=== PATIENT | female | born 1945 | race Hispanic/Latino ===

== ENCOUNTER 2018-03-24 04:55 | Emergency (ER) | payer OTHER ==
[2018-03-24 05:25] LABS: BASOPHILS % (AUTO) 0.4 % (0.0-5.0); EOSINOPHILS % (AUTO) 0.5 % (0.0-8.0); HEMATOCRIT 39.7 % (36-48); LYMPHOCYTES % (AUTO) 14.9 % (21.0-51.0); MEAN CORPUSCULAR HEMOGLOBIN 28.6 pg (27.0-33.0); MEAN CORPUSCULAR HGB CONC 33.4 g/dL (32.0-36.0); MEAN CORPUSCULAR VOLUME 85.6 fL (79-99); NEUTROPHILS % (AUTO) 78.2 % (40.0-77.0); PLATELET COUNT (AUTO) 156 K/uL (130-400); RED BLOOD CELL COUNT(AUTO) 4.64 MIL/uL (4.00-5.50); RED CELL DISTRIBUTION WIDTH 15.5 % (11.0-15.5); WHITE BLOOD COUNT (AUTO) 10.5 K/uL (4.8-10.8)
[2018-03-24 05:35] LABS: APPEARANCE,URINE Clear (CLEAR); BILIRUBIN,URINE Negative (NEGATIVE); COLOR,URINE Yellow (YELLOW); GLUCOSE, URINE (UA) Negative (NEGATIVE); KETONES,URINE Negative (NEGATIVE); LEUKOCYTE ESTERASE ,URINE Trace (NEGATIVE); NITRATE,URINE Negative (NEGATIVE); OCCULT BLOOD,URINE Negative (NEGATIVE); PH,URINE 7.5 (5.0-8.0); PROTEIN,URINE Negative (NEGATIVE); UROBILINOGEN,URINE 0.2 mg/dL (0.2-1.0)
[2018-03-24 05:36] LABS: CREATININE 0.8 mg/dL (0.5-1.5); POTASSIUM 3.3 mmol/L (3.5-5.1)
[2018-03-24 05:38] LABS: INR 0.94 (0.85-1.15); PARTIAL THROMBOPLASTIN TIME 24.6 SEC (26.3-35.5); PROTHROMBIN TIME 9.9 SEC (9.6-11.6)
[2018-03-24] MEDS ORDERED: POTASSIUM BICARB/CIT AC 25 MEQ TABLET.EFF ONE (05:43)
[2018-03-24] MEDS ORDERED: SODIUM CHLORIDE 0.9% 50 ML IV ONE (05:44)
[2018-03-24] MEDS ORDERED: CEFTRIAXONE SODIUM 1 GM ONE (05:44)
[2018-03-24 05:50] LABS: ALBUMIN 3.8 g/dL (3.5-5.0); BILIRUBIN,TOTAL 0.2 mg/dL (0.2-1.0); CREATINE KINASE MB 0.6 ng/mL (0.5-3.6); TOTAL PROTEIN, SERUM 7.8 g/dL (6.0-8.3)
[2018-03-24] MEDS ORDERED: KETOROLAC TROMETHAMINE 15MG/ML ONE (05:56)
[2018-03-24 05:57] LABS: BACTERIA,URINE Few /HPF (None Seen); MUCUS,URINE Few LPF (None Seen); RBC,URINE 0-1 /HPF (0-1); SQUAMOUS EPITHELIAL CELL,UR Few /HPF (0-2); WBC,URINE 0-1 /HPF (0-1)
[2018-03-24] MEDS ORDERED: TRAMADOL HCL 50 MG TABLET ONE (06:53)
[2018-03-24] MEDS ORDERED: ONDANSETRON HCL 4 MG/2 ML VIAL ONE (06:58)
== END 2018-03-24 08:34 | disposition home or self-care (01) ==
LOC: EDH 04:55
DX: N39.0 Urinary tract infection, site not specified (principal); I10 Essential (primary) hypertension; Z79.899 Other long term (current) drug therapy
CPT/HCPCS: 36415; 71045; 80053; 81001; 82550; 82553; 83690; 84484; 85025; 85610; 85730; 87088; 87186; 93005; 96374; 96375; 99285; J0696; J1885; J2405

== ENCOUNTER 2018-09-13 23:31 | Emergency (ER) | payer OTHER ==
[2018-09-14] MEDS ORDERED: HYDROCODONE/ACETAMINOPHEN 5/325 MG TAB ONE (00:42)
== END 2018-09-14 01:28 | disposition home or self-care (01) ==
LOC: EDH 23:31
DX: M25.552 Pain in left hip (principal); I10 Essential (primary) hypertension; M81.0 Age-related osteoporosis without current pathological fracture; Z79.899 Other long term (current) drug therapy; Z96.642 Presence of left artificial hip joint
CPT/HCPCS: 73502

== ENCOUNTER → 2019-11-08 | Outpatient (CLI) | payer OTHER | END | disposition home or self-care (01) | LOC: OIH 08:40 | PROVIDERS: ATTEND Family Medicine | DX: K40.90 Unilateral inguinal hernia, without obstruction or gangrene, not specified as recurrent (principal); I70.0 Atherosclerosis of aorta | CPT/HCPCS: 72192 ==

== ENCOUNTER 2025-01-22 00:24 | Observation (INO) | payer OTHER ==
[~2025-01-22] VITALS: Ht 152.4 cm; Wt 49.9 kg
[2025-01-22 00:58] LABS: BASOPHILS # (AUTO) 0.04 K/uL (0.00-0.20); BASOPHILS % (AUTO) 0.7 % (0.0-5.0); EOSINOPHILS # (AUTO) 0.22 K/uL (0.00-0.70); EOSINOPHILS % (AUTO) 3.7 % (0.0-8.0); HEMATOCRIT 35.1 % (36-48); IMMATURE GRANULOCYTE ABSOLUTE 0.01 K/uL (0-1); LYMPHOCYTES # (AUTO) 2.1 K/uL (1.0-4.8); LYMPHOCYTES % (AUTO) 36.1 % (21.0-51.0); MEAN CORPUSCULAR HEMOGLOBIN 28.8 pg (27.0-33.0); MEAN CORPUSCULAR HGB CONC 32.2 g/dL (32.0-36.0); MEAN CORPUSCULAR VOLUME 89.5 fL (79-99); MONOCYTES # (AUTO) 0.5 K/uL (0.1-1.0); MONOCYTES % (AUTO) 9.2 % (3.0-13.0); NEUTROPHILS % (AUTO) 50.1 % (40.0-77.0); PLATELET COUNT (AUTO) 117 K/uL (130-400); RED BLOOD CELL COUNT(AUTO) 3.92 MIL/uL (4.00-5.50); RED CELL DISTRIBUTION WIDTH 14.1 % (11.0-15.5); WHITE BLOOD COUNT (AUTO) 5.9 K/uL (4.8-10.8)
[2025-01-22 01:07] LABS: CREATININE 0.9 mg/dL (0.5-1.0); POTASSIUM 3.8 mmol/L (3.5-5.1)
[2025-01-22 01:40] LABS: BASOPHILS % (MANUAL) 1 % (0-2); EOSINOPHILS % (MANUAL) 4 % (1-6); LYMPHOCYTES % (MANUAL) 34 % (22-44); MONOCYTES % (MANUAL) 7 % (2-9); SEGMENTED NEUTROPHILS % 54 % (40-70); TOTAL CELLS COUNTED 100
[2025-01-22 01:41] LABS: MAN.DIFF COMMENT-IMPRESSION MANUAL DIFFERENTIAL
[2025-01-22 01:46] LABS: ADD UA MICROSCOPIC YES; APPEARANCE,URINE CLEAR (CLEAR); BILIRUBIN,URINE NEGATIVE (NEGATIVE); COLOR,URINE LIGHT-YELLOW (YELLOW); GLUCOSE, URINE (UA) NEGATIVE (NEGATIVE); KETONES,URINE NEGATIVE (NEGATIVE); LEUKOCYTE ESTERASE ,URINE 75 Leu/uL (NEGATIVE); NITRATE,URINE NEGATIVE (NEGATIVE); OCCULT BLOOD,URINE NEGATIVE (NEGATIVE); PROTEIN,URINE NEGATIVE (NEGATIVE); UROBILINOGEN,URINE 0.2 mg/dL (0.2-1.0)
[2025-01-22 01:48] LABS: BACTERIA,URINE FEW /HPF (None Seen); MUCUS,URINE RARE LPF (None Seen); RBC,URINE 0-1 /HPF (0-1); SQUAMOUS EPITHELIAL CELL,UR RARE /HPF (0-2)
--- NOTE | 2025-01-22 02:13 | HMCIMG ---
CT HEAD/BRAIN W/O CONTRAST HISTORY: Persistent dizziness COMPARISON: None TECHNIQUE: Multiple sequential axial images of the head were obtained from the base of the skull through vertex. Patient was not given contrast through intravenous route. FINDINGS: The ventricles and extraventricular CSF spaces are dilated consistent with cerebral atrophy. Nonspecific white matter changes seen. There is no midline shift, mass effect or herniation. No acute intracranial bleed is seen. Visualized portion of the paranasal sinuses are grossly within normal limits. IMPRESSION: 1. No acute intracranial bleed is seen. 2. Atrophy with white matter changes. CT was performed with one or more following dose reduction techniques: automated exposure control, adjustment of the mA and kv according to patient's size, or use of a iterative reconstruction technique.
--- NOTE | 2025-01-22 03:44 | ERN ---
General Chief Complaint: Dizzy/Light Headed Stated Complaint: DIZZINESS Time Seen by MD: 00:35 Time Seen by Midlevel: 00:35 Source: patient History of Present Illness Initial Comments The patient is an 79-year-old female with a past medical history of osteoporosis and hyperlipidemia being brought in by EMS for evaluation of dizziness. According to EMS the patient was getting out of her car when she became dizzy. She was unable to walk in a straight line so they decided to bring her in for further evaluation. On arrival she does report feeling mild dizziness but denies any focal weakness, vision changes, headache, or any other symptoms at this time. Allergies: Coded Allergies: No Known Allergies (Unverified Allergy, Unknown, 01/22/25) Past Medical History Past Medical History: Hypertension Past Surgical History: None ROS Dictation CONSTITUTIONAL: Negative except for HPI HEAD/FACE: Negative except for HPI EENT: Negative except for HPI RESPIRATORY: Negative except for HPI GASTROINTESTINAL/ABDOMINAL: Negative except for HPI GENITOURINARY: Negative except for HPI MUSCULOSKELETAL: Negative except for HPI INTEGUMENTARY: Negative except for HPI NEUROLOGICAL/PSYCH: Negative except for HPI HEMATOLOGIC/LYMPHATIC: Negative except for HPI All Systems Negative, Except as noted above. 13 point review of systems assessed and all negative except for above. Physical Exam Physical Exam Dictation Vital Signs reviewed General Appearance: Alert, oriented x 3, no acute distress, well developed, nourished. Head and Face: non-traumatic. Eyes: PERRL, pink conjunctivas, eyelid no trauma, anterior chamber with arcus senilis. Ears: Pinnas intact and no signs of trauma or erythema ear canals clear and no discharge TM no erythema Nose: No discharge, no bleeding. Oropharynx: Mouth normal, tongue pink, pharynx clear,no erythema, tonsils no exudates, no abscesses noted, mucous membrane moist Neck: Supple, non-tender, no thyromegaly, no masses, no JVD, no bruits Breast:Deferred Chest:No tenderness, no crepitus, no paradoxical movement, no retractions Lungs:Clear, well-ventilated, symmetric, no rales, no wheezing, no rhonchi, no stridor, good breath sounds bilaterally Heart: Regular rate, regular rhythm, no murmur, no gallops Vascular: no peripheral edema, Abdomen: Soft, positive bowel sounds, nondistended, no guarding, nontender, no rebound, no masses no hepatomegaly, no splenomegaly, no Doyle's sign, no hernias. Rectal: Deferred Genital: Deferred Neurological: Normal speech, motor function intact, sensory function intact Musculoskeletal: Neck nontender, full range of motion, back nontender, full range of motion, Extremities: nontender, full range of motion Skin: Color pink, dry, no turgor, no rash, no lacerations, no abrasions, no contusions. Lymphatic: Deferred Results Laboratory and Microbiology Lab and Micro Result Laboratory Tests Test 01/22/25 00:50 01/22/25 01:13 White Blood Count 5.9 K/uL (4.8-10.8) Red Blood Count 3.92 MIL/uL (4.00-5.50) L Hemoglobin 11.3 g/dL (12.0-16.0) L Hematocrit 35.1 % (36-48) L Mean Corpuscular Volume 89.5 fL (79-99) Mean Corpuscular Hemoglobin 28.8 pg (27.0-33.0) Mean Corpuscular Hemoglobin Concent 32.2 g/dL (32.0-36.0) Red Cell Distribution Width 14.1 % (11.0-15.5) Platelet Count 117 K/uL (130-400) L Mean Platelet Volume 12.6 fL (7.5-10.5) H Immature Granulocyte % (Auto) 0.2 % (0-1) Neutrophils (%) (Auto) 50.1 % (40.0-77.0) Lymphocytes (%) (Auto) 36.1 % (21.0-51.0) Monocytes (%) (Auto) 9.2 % (3.0-13.0) Eosinophils (%) (Auto) 3.7 % (0.0-8.0) Basophils (%) (Auto) 0.7 % (0.0-5.0) Neutrophils # (Auto) 3.0 K/uL (1.8-7.7) Lymphocytes # (Auto) 2.1 K/uL (1.0-4.8) Monocytes # (Auto) 0.5 K/uL (0.1-1.0) Eosinophils # (Auto) 0.22 K/uL (0.00-0.70) Basophils # (Auto) 0.04 K/uL (0.00-0.20) Absolute Immature Granulocyte (auto 0.01 K/uL (0-1) Segmented Neutrophils % 54 % (40-70) Lymphocytes % (Manual) 34 % (22-44) Monocytes % (Manual) 7 % (2-9) Eosinophils % (Manual) 4 % (1-6) Basophils % (Manual) 1 % (0-2) Nucleated Red Blood Cells 0.0 % (0.0-0.19) Differential Comment MANUAL DIFFERENTIAL White Cell Morphology Comment Platelet Morphology Comment See comments Red Blood Cell Morphology HYPOCHROM CELLS 1+ Sodium Level 144 mmol/L (136-145) Potassium Level 3.8 mmol/L (3.5-5.1) Chloride Level 107 mmol/L (101-111) Carbon Dioxide Level 29 mmol/L (21-32) Blood Urea Nitrogen 14 mg/dL (7-18) Creatinine 0.9 mg/dL (0.5-1.0) Glomerular Filtration Rate Calc 64 mL/min (>90) Random Glucose 110 mg/dL (70-105) H Total Calcium 8.3 mg/dL (8.5-10.1) L Magnesium Level 2.00 mg/dL (1.80-2.40) Total Creatine Kinase 83 U/L (21-232) # Troponin I High Sensitivity 8 ng/L (4-50) Urine Color LIGHT-YELLOW (YELLOW) Urine Appearance CLEAR (CLEAR) Urine pH 6.0 (5.0-8.0) Urine Specific [place] 1.011 (1.001-1.031) Urine Protein NEGATIVE mg/dL (NEGATIVE) Urine Glucose (UA) NEGATIVE mg/dL (NEGATIVE) Urine Ketones NEGATIVE mg/dL (NEGATIVE) Urine Occult Blood NEGATIVE (NEGATIVE) Urine Nitrate NEGATIVE (NEGATIVE) Urine Bilirubin NEGATIVE mg/dL (NEGATIVE) Urine Urobilinogen 0.2 mg/dL (0.2-1.0) Urine Leukocyte Esterase 75 Leslie/uL (NEGATIVE) H Urine RBC 0-1 /HPF (0-1) Urine WBC 2-5 /HPF (0-1) H Urine Squamous Epithelial Cells RARE /HPF (0-2) Urine Bacteria FEW /HPF (None Seen) Labs Reviewed?: Yes MDM MDM: The patient is an 79-year-old female with a past medical history of osteoporosis and hyperlipidemia being brought in by EMS for evaluation of dizziness. According to EMS the patient was getting out of her car when she became dizzy. She was unable to walk in a straight line so they decided to bring her in for further evaluation. On arrival she does report feeling mild dizziness but denies any focal weakness, vision changes, headache, or any other symptoms at this time. Initial vital signs are remarkable for a temperature of 98.1. Heart rate is normal at 67 beats per minute. Blood pressure stable at 140 4/90. On physical examination the patient was in no acute distress. She has a subjective dizziness. Her neurological examination is unremarkable. She was no focal weakness. GCS of 15. Cardiac workup was initiated. CBC shows no leukocytosis. There is mild anemia with hemoglobin of 11.3. There is mild thrombocytopenia with a platelet count of 117. Chemistries are unremarkable. Urinalysis does not show any evidence of infection. Chest x-ray is normal. CT scan of the head does not show any acute intracranial bleed or any other acute abnormality. Patient was observed in the emergency department for over 2 hours. Upon re-examination we attempted to road test the patient but she was unable to ambulate secondary to dizziness. Her blood pressure has increased to 180 systolic. We will keep in the hospital for further observation and management. Patient was agreeable with this plan and all questions have answered. Case was discussed with benchmark service who agrees to admit. Differential diagnosis: Dehydration, electrolyte abnormality, intracranial bleed, intracranial mass Rationale: Tests considered and ordered secondary to shared decision making include: Previous outside records reviewed: Old ER visits. Risk of complication and/or morbidity or mortality of patient management: None Medications-Per medication reconciliation Need for hospitalization: Patient does meet criteria for hospitalization. Need for emergency major/minor surgery: No There are no social concerns with this patient. Prescription drug management Prescriptions will include symptomatic care Patient's prior external medical records from other ER visits were reviewed by me as indicated. Prior testing and results from previous visits were reviewed. Prior tests were taken into account with medical decision making and resource utilization, independent historian/historians were used to obtain complete medical history. I independently interpreted the test that were performed, results were reviewed by me and considered findings on radiology if ordered. Medical management and examination interpretation discussions were had by me with other qualified healthcare professionals as indicated for the patient's care. ED Course Orders Procedure Category Date Status Time 12 Lead Ekg Tracing- EKG 01/22/25 Logged Technical 00:43 Cbc With Differential LAB 01/22/25 Complete 00:43 Basic Metabolic Panel LAB 01/22/25 Complete 00:43 Creatine Kinase, Total LAB 01/22/25 Complete 00:43 Urinalysis Profile LAB 01/22/25 Complete 00:43 Troponin I High LAB 01/22/25 Complete Sensitivity 00:43 Magnesium LAB 01/22/25 Complete 00:43 Chest 1vw RAD 01/22/25 Taken 00:43 Ct Head/Brain W/O CT 01/22/25 Resulted Contrast 00:48 Manual Differential LAB 01/22/25 Complete 00:50 Culture Urine YEMI 01/22/25 In Process 01:46 Vital Signs Date Time Temp Pulse Resp B/P (MAP) Pulse Ox O2 Delivery O2 Flow Rate FiO2 01/22/25 00:30 98.1 67 16 144/90 95 Room Air 0 [facility] [address] [place] [id number] IMAGING REPORT Signed PATIENT: SON SCOTT MR#: [id number] : 1945 SEX: F AGE: 79 LOCATION: ED ORDER STATUS: REG REPORT#: [id number] SERVICE REASON: persistent dizziness ORDERING PHYSICIAN: TONIE CARTER PROCEDURE: HEAD WO - CT HEAD/BRAIN W/O CONTRAST CT HEAD/BRAIN W/O CONTRAST HISTORY: Persistent dizziness COMPARISON: None TECHNIQUE: Multiple sequential axial images of the head were obtained from the base of the skull through vertex. Patient was not given contrast through intravenous route. FINDINGS: The ventricles and extraventricular CSF spaces are dilated consistent with cerebral atrophy. Nonspecific white matter changes seen. There is no midline shift, mass effect or herniation. No acute intracranial bleed is seen. Visualized portion of the paranasal sinuses are grossly within normal limits. IMPRESSION: 1. No acute intracranial bleed is seen. 2. Atrophy with white matter changes. CT was performed with one or more following dose reduction techniques: automated exposure control, adjustment of the mA and kv according to patient's size, or use of a iterative reconstruction technique. DICTATED BY: SINDHU CLARK MD DATE: 01/22/25206 ELECTRONICALLY SIGNED BY: SINDHU CLARK MD DATE: 01/22/25212 DX & DISP Disposition: Inpatient Decision to Admit Date: Jan 22, 2025 Decision to Admit Time: 03:42 Departure Impression: Primary Impression: Dizziness Additional Impression: Hypertensive urgency Condition: Stable Referrals: ETHAN VAZQUEZ DO (PCP) I have reviewed the case, and I agree with, Diagnosis and Plan I performed the substantive portion of the visit. I have reviewed and personally made and approve the management plan that is documented in the note by myself or the CATRACHITO. I acknowledge for responsibility for the patient's management plan. TONIE CARTER Jan 22, 2025 03:44
[2025-01-22] MEDS ORDERED: LAbetaLOL 20MG SYG IV PRN (04:00)
[2025-01-22] MEDS ORDERED: acetaMINOPHEN 650 MG SUPPOSITORY RC PRN (04:00)
[2025-01-22] MEDS ORDERED: HYDROcodone/APAP 5/325 1 TAB TABLET PO PRN ×2 (04:00)
[2025-01-22] MEDS ORDERED: acetaMINOPHEN 325 MG TAB PO PRN (04:00)
[2025-01-22] MEDS ORDERED: ondanSETRON 4MG INJ IVP PRN (04:00)
[2025-01-22] MEDS ORDERED: ALBUTEROL 0.083% 2.5 MG/3 ML INH IH PRN (04:00)
[2025-01-22 06:38] VITALS: PULSE 57; RESP 16; O2SAT 99
--- NOTE | 2025-01-22 06:53 | EKG ---
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
[2025-01-22] MEDS: hydrALAZine 20MG/ML VIAL IV PRN (07:02)
--- NOTE | 2025-01-22 07:04 | NUR ---
REPORT RECEIVED FROM FAROOQ LUNDBERG
[2025-01-22] MEDS ORDERED: ROSU10TA72 PO (07:26)
[2025-01-22] MEDS ORDERED: ALEN70TA80 PO (07:26)
--- NOTE | 2025-01-22 07:27 | NUR ---
MEDICATION RECONCILIATION: COMPLETED
--- NOTE | 2025-01-22 07:29 | NUR ---
ASSESSMENT: PT FOUND AWAKE W/HOB SLIGTLY ELEVATED. NO ACUTE DISTRESS NOTED. PT FAMILY MEMEBER AT BEDSIDE. PT VSS ON CHANNEL SPECIALIST EXCEPT SBP SLIGHTLY ABOVE 180. PT DENIES CP AND SOB. SHE DOES STATE SOME DIZZINESS WHEN SHE GETS OOB. NONE NOW WHILE LYING DOWN. NEURO: PT NEUROLOGICALLY INTACT AT THIS TIME. PT FOLLOWS BOTH SIMPLE AND COMPLEX COMMANDS. PT DENIES ANY DIZZINESS SHE LIES DOWN, BUT STATES YESTERDAY EACH TIME THAT SHE GOT UP, SHE DID HAVE EPISODES OF DIZZINESS. PUPILS ARE 3MM OU. GCS 15 CARDIO/PULMONARY: PT DENIES CP. SR W/OCCASIONAL PAC'S ON CHANNEL SPECIALIST 70'S. S1S2 AUSCULATED APICALLY. 2+PULSES TO BILATERALLY. NO EDEMA NOTED TO LE'S AT THIS TIME. CAP REFILL LESS THAN 3 SECONDS. PT DENIES SOB. LSCTA TO ALL LUNG HERNANDEZ ANTERIORLY AND LATERALLY. NO CYANOSIS NOTED TO NAIL BEDS ON HANDS. OXYGEN SATURATION ON MONITOR IS 97%+ ON ROOM AIR OXYGEN. NO USE OF ACCESSORY MUSCLES OR STERNAL RETRACTIONS NOTED. GI/: +BS X 4 QUADRANTS. ABD SOFT TO PALPATION. NO DISTENTION NOTED. PT DENIES ANY N/V/D AND STATES HAS BEEN EATING WELL. PT ALSO DENIES ANY ISSUES W/URINATION. NO BLADDER DISTENTION NOTED. MUSCULOSKELETAL/ORTHO: NO SKIN BREAKDOWN NOTED NOR VERBALIZED. SHE HAS FULL ROM TO ALL EXTREMTIIES.
--- NOTE | 2025-01-22 08:30 | NUR ---
PT ATE HER AM BREAKFAST. SHE ONLY ATE ABOUT 25% PER PT.
--- NOTE | 2025-01-22 09:30 | NUR ---
PT ASSISTED OOB TO BR TO VOID/BM.
--- NOTE | 2025-01-22 10:06 | HMCIMG ---
Exam Type: CHEST 1VW Clinical Information: sob Comparison: None Findings: The lungs are clear of infiltrates. The heart is enlarged. Bony and soft tissue structures of the chest wall are unremarkable. IMPRESSION: Cardiomegaly. Clear lungs.
[2025-01-22] MEDS: FAMOTIDINE 20MG TAB PO SCH (10:24)
[2025-01-22] MEDS: ASCORBIC ACID 500 MG TAB PO SCH (10:24)
[2025-01-22] MEDS: ENOXAPARIN SODIUM 40 MG/0.4 ML SYRINGE SQ SCH (10:24)
--- NOTE | 2025-01-22 11:00 | NUR ---
PT CURRENTLY DENIES ANY COMPLAINTS AT THIS TIME.
--- NOTE | 2025-01-22 12:39 | NUR ---
PT SITTING UP AND EATING HER NOON MEAL. FAMILY CHANGING OUT AND THERE IS A FEMALE SITTING W/HER AT BEDSIDE.
--- NOTE | 2025-01-22 15:15 | NUR ---
SPEECH TRIGGER COMPLETED / DIZZINESS AND ADVANCED AGE Pt IS AN 79 Y.O. FEMALE ADMITTED SECONDARY TO DIZZINESS AND HTN. Pt HAS A PAST MEDICAL HISTORY SIGNIFICANT FOR HYPERTENSION. PATIENT PRESENTED WITH CLEAR LUNGS ON MOST RECENT CHEST X-RAY (01/22/2025). Pt CURRENTLY ON HEART HEALTHY DIET (REGULAR TEXTURE AND THIN LIQUIDS). PER NURSE LORENA, Pt TOLERATING DIET WITH NO OVERT S/S OF ASPIRATION. PLEASE REQUEST SPEECH THERAPY SERVICES FOR SKILLED BEDSIDE SWALLOW EVALUATION IF Pt PRESENTS WITH +S/S OF ASPIRATION SUCH COUGH RESPONSE, THROAT CLEAR, OR WET VOCAL QUALITY DURING ORAL INTAKE. ALL QUESTIONS ANSWERED AT THIS TIME. Addendum: 01/22/[address]A BEDOLLA Amended: Links added.
--- NOTE | 2025-01-22 15:40 | HP ---
[facility] HISTORY & PHYSICAL Date Patient Seen: Jan 22, 2025 Time of Visit: 15:40 Supervising Physician: Dr. Francisco Fink Primary Care Physician: Dr. Gustavo Ramos Outpatient Specialists: [ ] Inpatient Consults: [ ] PROBLEM LIST: Near-syncope Hypertension Hyperlipidemia Osteoporosis HPI: Patient was an 79-year-old female with a past medical history significant for hypertension and hyperlipidemia who was brought to the ED and admitted with her daughter at bedside following a near syncopal event in which she nearly fell out of her car, patient's daughter stated that it appeared that she had fainted, both parties declined any head involvement or trauma in the process. Patient underwent an extensive imaging workup prior to admission including a CT scan of the head, blood work and urinalysis, chest x-ray, all of which have resulted with no acute findings. Patient's systolic blood pressure in the ED is a proximally 180. When further conversation with the daughter she endorses of the patient may not has been taking her medicine appropriately are adequately, states that the patient approximately four days ago received news of the of her brother in [place] and has been in his state of depression and bereavement following the news as she was not able to visit [place] for the services. On my examination patient appears to be relatively healthy physically for her age, blood pressure at the time of evaluation is 145/85, patient denies any further episodes of near-syncope since the event. After an extensive talk with the patient and family was decided that she should remain overnight for observation, we do not have the patient's current blood pressure medications on file, daughter stated that she would retrieve them from home and bring them to be updated in the chart so that we can better manage the patient's hypertension prior to her discharge. If medication should be received and we can manage her blood pressure with the said medications she is a good candidate for discharge tomorrow. PAST MEDICAL HX: see above PAST SURGICAL HX: noncontributory SOCIAL HISTORY: No tobacco, ETOH, or illicit drug use Coded Allergies: No Known Allergies (Unverified Allergy, Unknown, 01/22/25) REVIEW OF SYSTEMS: 12 point ROS reviewed with patient. Pertinent positives mentioned above. Otherwise negative. PHYSICAL EXAM: GENERAL: alert, weak, awake oriented x 3 HEENT: EOMI, Sclera non icteric, moist mucosa NECK: Supple, no JVD, trachea midline LUNGS: Clear breath sounds bilaterally. No wheezes HEART: Regular rate and rhythm. Normal S1 and S2, without murmurs ABD: Abdomen soft, nontender. Bowel sounds present EXT: No clubbing cyanosis or edema NEURO: Alert and oriented to person, follows commands LABS: Hematology Labs: Test 01/22/25 00:50 Range/Units White Blood Count 5.9 4.8-10.8 K/uL Red Blood Count 3.92 L 4.00-5.50 MIL/uL Hemoglobin 11.3 L 12.0-16.0 g/dL Hematocrit 35.1 L 36-48 % Mean Corpuscular Volume 89.5 79-99 fL Mean Corpuscular Hemoglobin 28.8 27.0-33.0 pg Mean Corpuscular Hemoglobin Concent 32.2 32.0-36.0 g/dL Red Cell Distribution Width 14.1 11.0-15.5 % Platelet Count 117 L 130-400 K/uL Mean Platelet Volume 12.6 H 7.5-10.5 fL Immature Granulocyte % (Auto) 0.2 0-1 % Neutrophils (%) (Auto) 50.1 40.0-77.0 % Lymphocytes (%) (Auto) 36.1 21.0-51.0 % Monocytes (%) (Auto) 9.2 3.0-13.0 % Eosinophils (%) (Auto) 3.7 0.0-8.0 % Basophils (%) (Auto) 0.7 0.0-5.0 % Neutrophils # (Auto) 3.0 1.8-7.7 K/uL Lymphocytes # (Auto) 2.1 1.0-4.8 K/uL Monocytes # (Auto) 0.5 0.1-1.0 K/uL Eosinophils # (Auto) 0.22 0.00-0.70 K/uL Basophils # (Auto) 0.04 0.00-0.20 K/uL Absolute Immature Granulocyte (auto 0.01 0-1 K/uL Segmented Neutrophils % 54 40-70 % Lymphocytes % (Manual) 34 22-44 % Monocytes % (Manual) 7 2-9 % Eosinophils % (Manual) 4 1-6 % Basophils % (Manual) 1 0-2 % Nucleated Red Blood Cells 0.0 0.0-0.19 % Differential Comment MANUAL DIFFERENTIAL White Cell Morphology Comment Platelet Morphology Comment See comments Red Blood Cell Morphology HYPOCHROM CELLS 1+ Chemistry Labs: Test 01/22/25 00:50 Range/Units Sodium Level 144 136-145 mmol/L Potassium Level 3.8 3.5-5.1 mmol/L Chloride Level 107 101-111 mmol/L Carbon Dioxide Level 29 21-32 mmol/L Blood Urea Nitrogen 14 7-18 mg/dL Creatinine 0.9 0.5-1.0 mg/dL Glomerular Filtration Rate Calc 64 >90 mL/min Random Glucose 110 H 70-105 mg/dL Total Calcium 8.3 L 8.5-10.1 mg/dL Magnesium Level 2.00 1.80-2.40 mg/dL Total Creatine Kinase 83 # 21-232 U/L Troponin I High Sensitivity 8 4-50 ng/L DIAGNOSTICS / RADIOLOGY RESULTS: [ ] PLAN NEURO: Minimize central acting medications as possible. Maintain fall precautions, adequate lighting during the day PULMONARY: Supplemental 02 as needed. Maintain aspiration precautions at all times CARDIOVASCULAR: Follow hemodynamics. Vital signs per facility protocol GI & NUTRITION: Continue with nutritional support. Continue stool softeners and laxatives as needed. KIDNEYS & ELECTROLYTES: Strict monitoring of intake, output and overall fluid balance. Avoid nephrotoxic medications to the extent possible. Medications to be dosed according to renal function. Monitor electrolytes and replace as needed ENDOCRINE: Maintain blood glucose between 100-180 at all times. Hypoglycemia protocol in place INFECTIOUS DISEASE: Trend temperature, WBC and procalcitonin level Follow cultures, deescalate antibiotics as soon as possible. Panculture if new onset fever ONCOLOGY/HEMATOLOGY/COAGULATION: Monitor for s/s of bleeding Monitor hemoglobin, coagulation studies as needed SKIN: Pressure ulcer prevention per facility protocol Specialty mattress ORTHO/REHAB: Continue PT/OT Prophylaxis: Continue GI and DVT prophylaxis Code Status: Full Resuscitation Disposition: TBD Other: Total patient care time exceeds 35 minutes excluding all procedures. CHEN OWEN Jan 22, 2025 15:40
[2025-01-22] MEDS ORDERED: LOSA50TA64 PO (16:30)
--- NOTE | 2025-01-22 18:42 | NUR ---
PT PROVIDED W/PM TRAY
--- NOTE | 2025-01-22 19:08 | NUR ---
REPORT TO GLENNY REY
[2025-01-22 23:47] VITALS: PULSE 60; RESP 18; O2SAT 98
[2025-01-23 06:44] VITALS: RESP 18; O2SAT 98
[2025-01-23 08:00] VITALS: BP 161/88; PULSE 88; RESP 20; TEMP 98.5
[2025-01-23 08:17] LABS: BASOPHILS # (AUTO) 0.04 K/uL (0.00-0.20); BASOPHILS % (AUTO) 0.4 % (0.0-5.0); EOSINOPHILS # (AUTO) 0.06 K/uL (0.00-0.70); EOSINOPHILS % (AUTO) 0.7 % (0.0-8.0); HEMATOCRIT 36.6 % (36-48); IMMATURE GRANULOCYTE ABSOLUTE 0.03 K/uL (0-1); LYMPHOCYTES % (AUTO) 10.7 % (21.0-51.0); MEAN CORPUSCULAR HGB CONC 31.7 g/dL (32.0-36.0); MEAN CORPUSCULAR VOLUME 88.4 fL (79-99); MONOCYTES # (AUTO) 0.5 K/uL (0.1-1.0); MONOCYTES % (AUTO) 5.4 % (3.0-13.0); NEUTROPHILS # (AUTO) 7.5 K/uL (1.8-7.7); NEUTROPHILS % (AUTO) 82.5 % (40.0-77.0); PLATELET COUNT (AUTO) 129 K/uL (130-400); RED BLOOD CELL COUNT(AUTO) 4.14 MIL/uL (4.00-5.50); RED CELL DISTRIBUTION WIDTH 14.1 % (11.0-15.5); WHITE BLOOD COUNT (AUTO) 9.1 K/uL (4.8-10.8)
[2025-01-23 08:27] LABS: CREATININE 0.9 mg/dL (0.5-1.0); PHOSPHORUS 3.1 mg/dL (2.5-4.9); POTASSIUM 3.8 mmol/L (3.5-5.1)
[2025-01-23] MEDS: CEFTRIAXONE 2GM VIAL IVPB SCH (08:30)
[2025-01-23] MEDS: LoSARTan 50 MG TABLET PO SCH (09:00)
--- NOTE | 2025-01-23 09:42 | PN ---
[facility] PROGRESS NOTE Date Patient Seen: Jan 23, 2025 Time of Visit: 09:42 Supervising Physician: [ ] Primary Care Physician: Dr. Gustavo Ramos Outpatient Specialists: [ ] Inpatient Consults: [ ] PROBLEM LIST: Near-syncope Hypertension Hyperlipidemia Osteoporosis INTERVAL HISTORY: [ ] REVIEW OF SYSTEMS: 12 point ROS reviewed with patient. Pertinent positives mentioned above. Otherwise negative. PHYSICAL EXAM: GENERAL: alert, weak, awake oriented x 3 HEENT: EOMI, Sclera non icteric, moist mucosa NECK: Supple, no JVD, trachea midline LUNGS: Clear breath sounds bilaterally. No wheezes HEART: Regular rate and rhythm. Normal S1 and S2, without murmurs ABD: Abdomen soft, nontender. Bowel sounds present EXT: No clubbing cyanosis or edema NEURO: Alert and oriented to person, follows commands Vital Signs (last 8hr) Date Time Temp Pulse Resp B/P (MAP) Pulse Ox O2 Delivery O2 Flow Rate FiO2 01/23/25 06:44 18 N/A Room Air 21 LABS: Hematology Labs: Test 01/23/25 07:40 01/22/25 00:50 Range/Units White Blood Count 9.1 4.8-10.8 K/uL Red Blood Count 4.14 4.00-5.50 MIL/uL Hemoglobin 11.6 L 12.0-16.0 g/dL Hematocrit 36.6 36-48 % Mean Corpuscular Volume 88.4 79-99 fL Mean Corpuscular Hemoglobin 28.0 27.0-33.0 pg Mean Corpuscular Hemoglobin Concent 31.7 L 32.0-36.0 g/dL Red Cell Distribution Width 14.1 11.0-15.5 % Platelet Count 129 L 130-400 K/uL Mean Platelet Volume 12.0 H 7.5-10.5 fL Immature Granulocyte % (Auto) 0.3 0-1 % Neutrophils (%) (Auto) 82.5 H 40.0-77.0 % Lymphocytes (%) (Auto) 10.7 L 21.0-51.0 % Monocytes (%) (Auto) 5.4 3.0-13.0 % Eosinophils (%) (Auto) 0.7 0.0-8.0 % Basophils (%) (Auto) 0.4 0.0-5.0 % Neutrophils # (Auto) 7.5 1.8-7.7 K/uL Lymphocytes # (Auto) 1.0 1.0-4.8 K/uL Monocytes # (Auto) 0.5 0.1-1.0 K/uL Eosinophils # (Auto) 0.06 0.00-0.70 K/uL Basophils # (Auto) 0.04 0.00-0.20 K/uL Absolute Immature Granulocyte (auto 0.03 0-1 K/uL Nucleated Red Blood Cells 0.0 0.0-0.19 % Segmented Neutrophils % 54 40-70 % Lymphocytes % (Manual) 34 22-44 % Monocytes % (Manual) 7 2-9 % Eosinophils % (Manual) 4 1-6 % Basophils % (Manual) 1 0-2 % Differential Comment MANUAL DIFFERENTIAL White Cell Morphology Comment Platelet Morphology Comment See comments Red Blood Cell Morphology HYPOCHROM CELLS 1+ Chemistry Labs: Test 01/23/25 07:40 01/22/25 00:50 Range/Units Sodium Level 143 136-145 mmol/L Potassium Level 3.8 3.5-5.1 mmol/L Chloride Level 108 101-111 mmol/L Carbon Dioxide Level 28 21-32 mmol/L Blood Urea Nitrogen 14 7-18 mg/dL Creatinine 0.9 0.5-1.0 mg/dL Glomerular Filtration Rate Calc 64 >90 mL/min Random Glucose 109 H 70-105 mg/dL Total Calcium 8.2 L 8.5-10.1 mg/dL Phosphorus Level 3.1 2.5-4.9 mg/dL Magnesium Level 2.00 1.80-2.40 mg/dL Total Creatine Kinase 83 # 21-232 U/L Troponin I High Sensitivity 8 4-50 ng/L DIAGNOSTICS / RADIOLOGY RESULTS: [ ] PLAN NEURO: Minimize central acting medications as possible. Maintain fall precautions, adequate lighting during the day PULMONARY: Supplemental 02 as needed. Maintain aspiration precautions at all times CARDIOVASCULAR: Follow hemodynamics. Vital signs per facility protocol GI & NUTRITION: Continue with nutritional support. Continue stool softeners and laxatives as needed. KIDNEYS & ELECTROLYTES: Strict monitoring of intake, output and overall fluid balance. Avoid nephrotoxic medications to the extent possible. Medications to be dosed according to renal function. Monitor electrolytes and replace as needed ENDOCRINE: Maintain blood glucose between 100-180 at all times. Hypoglycemia protocol in place INFECTIOUS DISEASE: Trend temperature, WBC and procalcitonin level Follow cultures, deescalate antibiotics as soon as possible. Panculture if new onset fever ONCOLOGY/HEMATOLOGY/COAGULATION: Monitor for s/s of bleeding Monitor hemoglobin, coagulation studies as needed SKIN: Pressure ulcer prevention per facility protocol Specialty mattress ORTHO/REHAB: Continue PT/OT Prophylaxis: Continue GI and DVT prophylaxis Code Status: Full Resuscitation Disposition: TBD Other: Total patient care time exceeds 35 minutes excluding all procedures. DEBORAH PEDROZA [facility] Jan 23, 2025 09:42
--- NOTE | 2025-01-23 09:57 | HMCIMG ---
Carotid Duplex and color-flow Doppler bilateral Clinical Information: near syncope Comparison: None Findings: Mild left carotid bifurcation plaque is seen. No hemodynamically significant stenosis noted. Left Internal Carotid Artery Peak Systolic Velocity (PSV), Left Internal Carotid to Common Carotid Artery peak systolic velocity ratio, Right Internal Carotid Artery Peak Systolic Velocity (PSV) and Right Internal Carotid to Common Carotid Artery peak systolic velocity ratio, are all within normal limits. External carotid artery velocities normal bilaterally. Bilateral vertebral arteries show normal velocities and waveforms with antegrade flow. Impression: No hemodynamically significant stenosis noted.
--- NOTE | 2025-01-23 11:06 | NUR ---
DCP: HOME Pt states her daughter Yazmin Sosa [phone]. Pt states she does not qualify for provider services or food stamps. Denies issues affording utilities at this time. Pt able to complete ADLS on her own, and daughter will assist as needed. Pt also states that between her and her daughter, they are able to manage with home management and meal prep. Daughter transports as needed. Pt has no HH or HD services. PCP is Chin Coles and uses [facility] for rx. Pt denies need for SNF and will return home at or Addendum: 01/23/25 at 1111 by SARIKA REINA Amended: Links added.
[2025-01-23 12:00] VITALS: BP 122/78; PULSE 72; RESP 18; TEMP 98.2
[2025-01-23] MEDS ORDERED: CEFD300C3 PO (14:33)
[2025-01-23 15:38] VITALS: BP 140/65; PULSE 64; RESP 14; TEMP 98.3; O2SAT 96
--- NOTE | 2025-01-23 15:54 | NUR ---
PATIENT DC I DC'D PATIENTS IV WITH CATH STILL IN PLACE AND APPLIED 2X2 GAUZE WITH COBAN I EXPLAINED TO PATIENT TO FOLLOW UP WITH PCP AND TAKE PRESCRIPTIONS PRESCRIBED, PATIENT WAS TAKEN BY WHEECHAIR OUT OF ED BY NANDINI REY, NO COMPLICATIONS
[2025-01-23] MEDS ORDERED: atorVAStatin 40 MG TABLET PO SCH (21:00)
--- NOTE | 2025-01-24 00:45 | DS ---
[facility] DISCHARGE SUMMARY Date Patient Seen: Jan 24, 2025 Time of Visit: 00:40 Supervising Physician: Raj Rouse MD Primary Care Physician: Dr. Gustavo Ramos Outpatient Specialists: [ ] Inpatient Consults: [ ] PROBLEM LIST: Acute cystitis, POA prescription for cefdinir given Near-syncope POA Hypertension Hyperlipidemia Osteoporosis HOSPITAL COURSE: HPI Patient was an 79-year-old female with a past medical history significant for hypertension and hyperlipidemia who was brought to the ED and admitted with her daughter at bedside following a near syncopal event in which she nearly fell out of her car, patient's daughter stated that it appeared that she had fainted, both parties declined any head involvement or trauma in the process. Patient underwent an extensive imaging workup prior to admission including a CT scan of the head, blood work and urinalysis, chest x-ray, all of which have resulted with no acute findings. Patient's systolic blood pressure in the ED is a proximally 180. When further conversation with the daughter she endorses of the patient may not has been taking her medicine appropriately are adequately, states that the patient approximately four days ago received news of the of her brother in [place] and has been in his state of depression and bereavement following the news as she was not able to visit [place] for the services. On my examination patient appears to be relatively healthy physically for her age, blood pressure at the time of evaluation is 145/85, patient denies any further episodes of near-syncope since the event. After an extensive talk with the patient and family was decided that she should remain overnight for o bservation, we do not have the patient's current blood pressure medications on file, daughter stated that she would retrieve them from home and bring them to be updated in the chart so that we can better manage the patient's hypertension prior to her discharge. If medication should be received and we can manage her blood pressure with the said medications she is a good candidate for discharge tomorrow. Patient is seen this morning awake alert and oriented x3. He was improvement to her blood pressure with the latest be in 122/78 heart rate in the 70s saturating 96% at room air and afebrile.CBC and chemistry was unremarkable this morning. Sensitive troponin was negative at 8 ng per L. Urine culture growing greater than [id number] CFU. Chest x-ray showed cardiomegaly but clear lungs. Head CT showed no acute intracranial bleed seen. Atrophy with white matter changes. Carotid ultrasound ordered and resulted with no hemodynamically significant stenosis noted. Patient is stable for discharge. Discharge home with cefdinir 300 mg p.o. b.i.d. x7 days for acute cystitis. She may resume home medications. CHRONIC PROBLEMS: continue previous management per PCP unless otherwise indicated OCCUPATIONAL NURSE FINDINGS/RECOMMENDATIONS: N/A PROCEDURES: as mentioned above DISCHARGE MEDICATIONS: Continue home medications with the alendronate 70 mg one tab p.o. q.week Losartan potassium 50 mg one tablet daily Rosuvastatin calcium 20 mg p.o. q.h.s. New prescription given for cefdinir 300 mg p.o. b.i.d. x7 days for UTI. Pt hemodynamically stable and afebrile at time of discharge. PCP notified of patients admission, hospital course and discharge. New Medications: Cefdinir (Cefdinir) 300 Mg Capsule 300 MG PO BID for 7 Days, #14 CAP 0 Refills Continued Medications: Alendronate Sodium (Alendronate Sodium) 70 Mg Tablet 1 TAB PO QWEEK for 28 Days, #4 TAB 0 Refills in the morning, at least 30 minutes before the first food, beverage, or medication of the day Losartan Potassium (Losartan Potassium) 50 Mg Tablet 1 TAB PO DAILY for 30 Days, #30 TAB 0 Refills Rosuvastatin Calcium (Rosuvastatin Calcium) 10 Mg Tablet 20 MG PO HS, TAB PHYSICAL EXAM: GENERAL: alert, weak, awake oriented x 3 HEENT: EOMI, Sclera non icteric, moist mucosa NECK: Supple, no JVD, trachea midline LUNGS: Clear breath sounds bilaterally. No wheezes HEART: Regular rate and rhythm. Normal S1 and S2, without murmurs ABD: Abdomen soft, nontender. Bowel sounds present EXT: No clubbing cyanosis or edema NEURO: Alert and oriented to person, follows commands FOLLOW-UP: Follow-up with PCP in 2-3 days RECOMMENDATIONS: See Discharge Instructions This case was seen and discussed with my supervising physician. More than 30 minutes spent on discharge process, including evaluation of the patient, discussion with nursing staff, medication reconciliation and follow-up appointments DEBORAH PEDROZA Jan 24, 2025 00:45
[2025-01-28] MEDS ORDERED: ALENDRONATE SODIUM 35 MG TAB PO SCH (06:30)
== END 2025-01-23 15:46 | disposition home or self-care (01) ==
LOC: EDH 00:24 → INTOOBSV 03:35 → EDHIP 03:35
PROVIDERS: ADMIT Internal Medicine; ATTEND Internal Medicine
DX: N30.00 Acute cystitis without hematuria (principal); R55 Syncope and collapse; I11.9 Hypertensive heart disease without heart failure; E78.5 Hyperlipidemia, unspecified; R60.0 Localized edema; M81.0 Age-related osteoporosis without current pathological fracture; I16.0 Hypertensive urgency; F32.A Depression, unspecified; Z79.899 Other long term (current) drug therapy
CPT/HCPCS: 99285; 96374; 70450; 71045; 82550; 83735 ×2; 84484; 80048 ×2; 85025 ×2; 87086; 81001; 36415 ×2; 93005; 94664; 96372; 93880; 84100; J0360; J1650 ×2; G0378; J0696

== ENCOUNTER 2025-08-06 21:23 | Observation (INO) | payer OTHER ==
[~2025-08-06] VITALS: Ht 152.4 cm; Wt 50.8 kg
[~2025-08-06 21:23] MED LIST: ALEN70TA80 PO; CEFD300C3 PO; LOSA50TA64 PO; ROSU10TA98 PO
[2025-08-07 00:44] LABS: IMMATURE GRANULOCYTE ABSOLUTE 0.02 K/uL (0-1); INR 1.0 (0.85-1.15); NUCLEATED RED BLOOD CELLS 0.0 % (0.0-0.19); PLATELET COUNT (AUTO) 139 K/uL (130-400); RED BLOOD CELL COUNT(AUTO) 4.11 MIL/uL (4.00-5.50); RED CELL DISTRIBUTION WIDTH 13.1 % (11.0-15.5); WHITE BLOOD COUNT (AUTO) 6.8 K/uL (4.8-10.8)
[2025-08-07 00:50] LABS: CREATININE 0.9 mg/dL (0.5-1.0); GLOMERULAR FILTR. RATE CALC 64.0 mL/min (>90); GLUCOSE,RANDOM 103.0 mg/dL (70-105); SODIUM SERUM 138.0 mmol/L (136-145); UREA NITROGEN, BLOOD 15.0 mg/dL (7-18)
--- NOTE | 2025-08-07 00:51 | ERN ---
General Chief Complaint: Back Pain-No Injury Stated Complaint: C/O UPPER BACK PAIN X 4 DAYS Time Seen by MD: 21:30 History of Present Illness Initial Comments 80 y/o female came in for back pain. Allergies: Coded Allergies: No Known Allergies (Unverified Allergy, Unknown, 01/22/25) Home Meds Active Scripts Cefdinir (Cefdinir) 300 Mg Capsule, 300 MG PO BID for 7 Days, #14 CAP 0 Refills Prov:[facility] 01/23/25 Reported Medications Losartan Potassium (Losartan Potassium) 50 Mg Tablet, 1 TAB PO DAILY for 30 Days, #30 TAB 0 Refills 01/22/25 Alendronate Sodium (Alendronate Sodium) 70 Mg Tablet, 1 TAB PO QWEEK for 28 Days, #4 TAB 0 Refills in the morning, at least 30 minutes before the first food, beverage, or medication of the day 01/22/25 Rosuvastatin Calcium (Rosuvastatin Calcium) 10 Mg Tablet, 20 MG PO HS, TAB 01/22/25 Past Medical History Past Medical History: High Cholesterol, Hypertension Past Surgical History: None ROS Dictation Back pain Physical Exam General Appearance: (+) no apparent distress, (+) apparent distress Orientation: (+) alert, (+) oriented x 3 Respiratory: (+) chest non-tender, (+) lungs clear Heart: (+) regular, (+) no gallop Gastrointestinal: (+) soft, (+) non-tender, (+) no organomegaly, (+) bowel sound present Results Laboratory and Microbiology Lab and Micro Result Laboratory Tests Test 08/07/25 00:15 White Blood Count 6.8 K/uL (4.8-10.8) Red Blood Count 4.11 MIL/uL (4.00-5.50) Hemoglobin 12.0 g/dL (12.0-16.0) Hematocrit 37.4 % (36-48) Mean Corpuscular Volume 91.0 fL (79-99) Mean Corpuscular Hemoglobin 29.2 pg (27.0-33.0) Mean Corpuscular Hemoglobin Concent 32.1 g/dL (32.0-36.0) Red Cell Distribution Width 13.1 % (11.0-15.5) Platelet Count 139 K/uL (130-400) Mean Platelet Volume 12.1 fL (7.5-10.5) H Immature Granulocyte % (Auto) 0.3 % (0-1) Neutrophils (%) (Auto) 62.1 % (40.0-77.0) Lymphocytes (%) (Auto) 26.3 % (21.0-51.0) Monocytes (%) (Auto) 9.0 % (3.0-13.0) Eosinophils (%) (Auto) 1.6 % (0.0-8.0) Basophils (%) (Auto) 0.7 % (0.0-5.0) Neutrophils # (Auto) 4.2 K/uL (1.8-7.7) Lymphocytes # (Auto) 1.8 K/uL (1.0-4.8) Monocytes # (Auto) 0.6 K/uL (0.1-1.0) Eosinophils # (Auto) 0.11 K/uL (0.00-0.70) Basophils # (Auto) 0.05 K/uL (0.00-0.20) Absolute Immature Granulocyte (auto 0.02 K/uL (0-1) Nucleated Red Blood Cells 0.0 % (0.0-0.19) Prothrombin Time 10.6 SEC (9.6-11.6) Prothromb Time International Ratio 1.00 (0.85-1.15) Activated Partial Thromboplast Time 25.4 SEC (26.3-35.5) L MDM MDM: Differential diagnosis: Rationale: Tests considered and ordered secondary to shared decision making include: labs, ECG and radiology Previous outside records reviewed: Old ER visits. Risk of complication and/or morbidity or mortality of patient management: None Medications-Per medication reconciliation Need for hospitalization: Patient does meet criteria for hospitalization. Need for emergency major/minor surgery: No There are no social concerns with this patient. Prescription drug management Prescriptions will include symptomatic care Patient's prior external medical records from other ER visits were reviewed by me as indicated. Prior testing and results from previous visits were reviewed. Prior tests were taken into account with medical decision making and resource utilization, independent historian/historians were used to obtain complete medical history. I independently interpreted the test that were performed, results were reviewed by me and considered findings on radiology if ordered. Medical management and examination interpretation discussions were had by me with other qualified healthcare professionals as indicated for the patient's care. ED Course Orders Procedure Category Date Status Time 12 Lead Ekg Tracing- EKG 08/07/25 Logged Technical 00:00 B-Type Natriuretic LAB 08/07/25 In Process Peptide 00:00 Basic Metabolic Panel LAB 08/07/25 In Process 00:00 Cbc With Differential LAB 08/07/25 In Process 00:00 Magnesium LAB 08/07/25 In Process 00:00 Pt And Ptt LAB 08/07/25 Complete 00:00 Chest 1vw RAD 08/07/25 Taken 00:00 Morphine 2mg Syg PHA 08/07/25 Complete (Morphine 2mg Syg) 00:00 Ondansetron 4mg Inj PHA 08/07/25 Complete (Zofran 4mg Inj) 00:00 Cardiac Panel LAB 08/07/25 In Process 00:15 Current Medications Medications (Trade) Dose Ordered Sig/Juan Alberto Route PRN Reason Start Time Stop Time Status Last Admin Dose Admin Morphine Sulfate (morPHINE 2MG SYG) 2 mg ONCE ONCE IVP 08/07/25 00:00 08/07/25 00:04 DC 08/07/25 00:33 Ondansetron HCl (zoFRAN 4MG INJ) 4 mg ONCE ONCE IVP 08/07/25 00:00 08/07/25 00:04 DC 08/07/25 00:33 Vital Signs Date Time Temp Pulse Resp B/P (MAP) Pulse Ox O2 Delivery O2 Flow Rate FiO2 08/07/25 00:34 68 17 176/62 99 Room Air* 0 21 08/06/25 21:25 98.1 63 20 201/75 99 Room Air DX & DISP Disposition: Inpatient Departure Impression: Primary Impression: Hypertensive urgency Condition: Stable Referrals: ETHAN VAZQUEZ DO (PCP) FLASH TREOJ MD Aug 07, 2025 00:51
[2025-08-07 00:58] LABS: CREATINE KINASE, TOTAL 74.0 U/L (21-232)
--- NOTE | 2025-08-07 01:10 | HMCIMG ---
EXAM: CR Chest, 1 view. CLINICAL HISTORY: Pain in the upper back. COMPARISON: None. FINDINGS: Suspicion of mild atelectasis in the left lower zone. No pleural effusion or pneumothorax. The cardio mediastinal silhouette is within normal limits. No acute osseous abnormality. Osteopenia. IMPRESSION: No acute cardiopulmonary pathology is evident. Suspicion of mild atelectasis in the left lower zone. /[place]
--- NOTE | 2025-08-07 05:03 | EKG ---
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
[2025-08-07 08:00] VITALS: BP 120/51; PULSE 75; RESP 17; O2SAT 100
[2025-08-07] MEDS ORDERED: AMOX500C2 PO (08:01)
[2025-08-07] MEDS ORDERED: IBUP-2077 PO (08:01)
[2025-08-07 12:00] VITALS: BP 140/60; PULSE 59; RESP 17
--- NOTE | 2025-08-07 12:19 | HP ---
[facility] HISTORY & PHYSICAL Date Patient Seen: Aug 07, 2025 Time of Visit: 12:11 Supervising Physician: [Dr Cartwright Primary Care Physician: Baltazar Ramos Outpatient Specialists: [ ] Inpatient Consults: [ ] PROBLEM LIST: Hypertensive Urgency POA Acute Left back pain Essential Hypertension Hyperlipidemia Osteoporosis PLAN: Supplemental oxygen as needed Patient on room air Monitor blood pressure trends closely Resume home antihypertensives once home medicines available Hydralazine as needed Labetalol as needed Obtain left rib series x-ray Obtain left shoulder x-ray Continue losartan 50 mg daily HPI: Mrs. Son Tobias is an 80 year old female with a past medical history hypertension, hyperlipidemia, osteoporosis presents to the emergency room with a chief complaint of left shoulder pain with an onset of about 3 days. Patient denies any injury to the left shoulder. Patient denies any recent falls. Patient reports pain is limiting her mobility to the left upper extremity. Patient denies fevers, chills, shortness for breath, chest pain, nausea, vomiting, abdominal pain. Admission vital signs are temperature 98.4, heart rate 60 beats per minute, respiratory rate 17 breaths per minute, blood pressure 192/72, O2 sat 98% on room air. Admission labs show a CBC unremarkable, chemistries are unremarkable. Admission chest x-ray shows no acute cardiopulmonary pathology evident. On exam patient was found to have normal range of motion to left upper extremity however did complain of minimal tenderness. We will request x-ray. Patient will be admitted for hypotensive urgency. PAST MEDICAL HX: see above PAST SURGICAL HX: noncontributory SOCIAL HISTORY: No tobacco, ETOH, or illicit drug use Coded Allergies: No Known Allergies (Unverified Allergy, Unknown, 01/22/25) REVIEW OF SYSTEMS: 12 point ROS reviewed with patient. Pertinent positives mentioned above. Otherwise negative. PHYSICAL EXAM: GENERAL: alert, weak, awake oriented x 3 HEENT: EOMI, Sclera non icteric, moist mucosa NECK: Supple, no JVD, trachea midline LUNGS: Clear breath sounds bilaterally. No wheezes HEART: Regular rate and rhythm. Normal S1 and S2, without murmurs ABD: Abdomen soft, nontender. Bowel sounds present EXT: No clubbing cyanosis or edema NEURO: Alert and oriented to person, follows commands Vital Signs (last 8hr) Date Time Temp Pulse Resp B/P (MAP) Pulse Ox O2 Delivery O2 Flow Rate FiO2 08/07/25 08:00 100 Room Air* 0 21 08/07/25 08:00 75 17 120/51 100 Room Air 0.0 08/07/25 05:49 62 17 137/54 98 Room Air* 0 21 LABS: Hematology Labs: Test 08/07/25 00:15 Range/Units White Blood Count 6.8 4.8-10.8 K/uL Red Blood Count 4.11 4.00-5.50 MIL/uL Hemoglobin 12.0 12.0-16.0 g/dL Hematocrit 37.4 36-48 % Mean Corpuscular Volume 91.0 79-99 fL Mean Corpuscular Hemoglobin 29.2 27.0-33.0 pg Mean Corpuscular Hemoglobin Concent 32.1 32.0-36.0 g/dL Red Cell Distribution Width 13.1 11.0-15.5 % Platelet Count 139 130-400 K/uL Mean Platelet Volume 12.1 H 7.5-10.5 fL Immature Granulocyte % (Auto) 0.3 0-1 % Neutrophils (%) (Auto) 62.1 40.0-77.0 % Lymphocytes (%) (Auto) 26.3 21.0-51.0 % Monocytes (%) (Auto) 9.0 3.0-13.0 % Eosinophils (%) (Auto) 1.6 0.0-8.0 % Basophils (%) (Auto) 0.7 0.0-5.0 % Neutrophils # (Auto) 4.2 1.8-7.7 K/uL Lymphocytes # (Auto) 1.8 1.0-4.8 K/uL Monocytes # (Auto) 0.6 0.1-1.0 K/uL Eosinophils # (Auto) 0.11 0.00-0.70 K/uL Basophils # (Auto) 0.05 0.00-0.20 K/uL Absolute Immature Granulocyte (auto 0.02 0-1 K/uL Nucleated Red Blood Cells 0.0 0.0-0.19 % Chemistry Labs: Test 08/07/25 11:01 08/07/25 00:15 Range/Units Whole Blood Glucose 98 70-110 MG/DL Sodium Level 138 136-145 mmol/L Potassium Level 3.7 3.5-5.1 mmol/L Chloride Level 103 101-111 mmol/L Carbon Dioxide Level 28 21-32 mmol/L Blood Urea Nitrogen 15 7-18 mg/dL Creatinine 0.9 0.5-1.0 mg/dL Glomerular Filtration Rate Calc 64 >90 mL/min Random Glucose 103 70-105 mg/dL Total Calcium 8.8 8.5-10.1 mg/dL Magnesium Level 2.10 1.80-2.40 mg/dL Total Creatine Kinase 74 21-232 U/L Troponin I High Sensitivity 8.6 4-50 ng/L B-Type Natriuretic Peptide 82 0-100 pg/mL Coagulation Labs: Test 08/07/25 00:15 Range/Units Prothrombin Time 10.6 9.6-11.6 SEC Prothromb Time International Ratio 1.00 0.85-1.15 Activated Partial Thromboplast Time 25.4 L 26.3-35.5 SEC DIAGNOSTICS / RADIOLOGY RESULTS: PATIENT: SON TOBIAS MR#: [id number] : 1945 SEX: F AGE: 80 LOCATION: [facility] ORDER 0001 STATUS: [facility] REPORT#: [id number] SERVICE 0000 REASON: upper back pain ORDERING PHYSICIAN: TONIE CARTER PAC PROCEDURE: CXR1VW - CHEST 1VW EXAM: CR Chest, 1 view. CLINICAL HISTORY: Pain in the upper back. COMPARISON: None. FINDINGS: Suspicion of mild atelectasis in the left lower zone. No pleural effusion or pneumothorax. The cardio mediastinal silhouette is within normal limits. No acute osseous abnormality. Osteopenia. IMPRESSION: No acute cardiopulmonary pathology is evident. Suspicion of mild atelectasis in the left lower zone. /S [place] DICTATED BY: YAMILETH ELLSWORTH Jr., MD DATE: 08/07/25208 ELECTRONICALLY SIGNED BY: YAMILETH ELLSWORTH Jr., MD DATE: 08/07/25208 PLAN NEURO: Minimize central acting medications as possible. Maintain fall precautions, adequate lighting during the day PULMONARY: Supplemental 02 as needed. Maintain aspiration precautions at all times CARDIOVASCULAR: Follow hemodynamics. Vital signs per facility protocol GI & NUTRITION: Continue with nutritional support. Continue stool softeners and laxatives as needed. KIDNEYS & ELECTROLYTES: Strict monitoring of intake, output and overall fluid balance. Avoid nephrotoxic medications to the extent possible. Medications to be dosed according to renal function. Monitor electrolytes and replace as needed ENDOCRINE: Maintain blood glucose between 100-180 at all times. Hypoglycemia protocol in place INFECTIOUS DISEASE: Trend temperature, WBC and procalcitonin level Follow cultures, deescalate antibiotics as soon as possible. Panculture if new onset fever ONCOLOGY/HEMATOLOGY/COAGULATION: Monitor for s/s of bleeding Monitor hemoglobin, coagulation studies as needed SKIN: Pressure ulcer prevention per facility protocol Specialty mattress ORTHO/REHAB: Continue PT/OT Prophylaxis: Continue GI and DVT prophylaxis Code Status: Full Resuscitation Disposition: Home once medically stable for discharge. ATTESTATION BY PHYSICIAN I reviewed the documentation, medical decision making, and treatment plan as noted by the mid-level provider above. I agree with the findings and plan of care. Theo Cartwright MD, [facility] [employer] Aug 07, 2025 12:19
--- NOTE | 2025-08-07 14:28 | NUR ---
gave report to TAMIKA Soto, patient admitted to [facility] floor room 306
[2025-08-07 14:40] VITALS: BP 152/62; PULSE 66; RESP 17; TEMP 97.8
--- NOTE | 2025-08-07 14:40 | NUR ---
ARRIVAL TO UNIT PT ARRIVED TO UNIT. A&OX4. NON LABORED BREATHING. PT DENIES PAIN. NO QUESTIONS AT THIS TIME.
--- NOTE | 2025-08-07 15:40 | NUR ---
DCP:HOME Pt states that she currently lives at home and her daughter lives with her Yazmin Sosa [phone]. Pt does not have any DME, home health, or provider. Pt states that she is able to complete ADLs independently. PCP is Brittany Ramos and uses [facility] for any RX needs. At DC pt will want to go home and family can assist with transportation.
[2025-08-07] MEDS: PoTASSium chloRIDE 20MEQ ER 20 MEQ ERTAB PO PRN (19:35)
[2025-08-07 20:00] VITALS: BP 156/55; PULSE 77; RESP 20; TEMP 98.1
[2025-08-07] MEDS: PoTASSium chl 10% ELIXIR 20MEQ 20 MEQ/15 ML UDCUP PO PRN (22:57)
[2025-08-08] VITALS: BP 142/60; PULSE 70; RESP 20; TEMP 98.1
[2025-08-08 04:00] VITALS: BP 159/65; PULSE 60; RESP 18; TEMP 98
[2025-08-08 04:57] LABS: IMMATURE GRANULOCYTE ABSOLUTE 0.02 K/uL (0-1); NUCLEATED RED BLOOD CELLS 0.0 % (0.0-0.19); PLATELET COUNT (AUTO) 139 K/uL (130-400); RED BLOOD CELL COUNT(AUTO) 3.87 MIL/uL (4.00-5.50); RED CELL DISTRIBUTION WIDTH 13.2 % (11.0-15.5); WHITE BLOOD COUNT (AUTO) 5.9 K/uL (4.8-10.8)
[2025-08-08 05:17] LABS: CREATININE 0.9 mg/dL (0.5-1.0); GLOMERULAR FILTR. RATE CALC 64.0 mL/min (>90); GLUCOSE,RANDOM 99.0 mg/dL (70-105); PHOSPHORUS 3.2 mg/dL (2.5-4.9); SODIUM SERUM 139.0 mmol/L (136-145); UREA NITROGEN, BLOOD 13.0 mg/dL (7-18)
--- NOTE | 2025-08-08 05:29 | HMCIMG ---
EXAM: CR right Shoulder, 2 View. CLINICAL HISTORY: PAIN COMPARISON: None provided. FINDINGS: BONES: No acute fracture or aggressive appearing osseous lesion. JOINTS: No dislocation. Mild acromioclavicular and glenohumeral joint osteoarthritis. SOFT TISSUES: The soft tissues are unremarkable. IMPRESSION: No acute abnormality evident on examination of the right shoulder. No acute fracture or dislocation. Mild acromioclavicular and glenohumeral joint osteoarthritis. /[place]
[2025-08-08 07:38] VITALS: BP 161/71; PULSE 61; RESP 16; TEMP 97.8
[2025-08-08 07:50] VITALS: BP 164/68
[2025-08-08 07:53] VITALS: O2SAT 99
[2025-08-08] MEDS: LIDOCAINE 5% TOPICAL PATCH TP ONE (09:41)
[2025-08-08 11:32] VITALS: BP 121/55; PULSE 77; RESP 12; TEMP 97.7
[2025-08-08] MEDS ORDERED: LOSA50TA64 PO (11:33)
--- NOTE | 2025-08-08 11:39 | DS ---
[facility] DISCHARGE SUMMARY Date Patient Seen: Aug 08, 2025 Time of Visit: 11:34 Supervising Physician: [Dr Dunbar Primary Care Physician: Baltazar Ramos Outpatient Specialists: [ ] Inpatient Consults: [ ] PROBLEM LIST: Hypertensive Urgency POA resolved Acute Left shoulder pain - osteoarthritis as per x ray Essential Hypertension Hyperlipidemia Osteoporosis HOSPITAL COURSE: HPI (per admitting provider) Mrs. Paz Tobias is an 80 year old female with a past medical history hypertension, hyperlipidemia, osteoporosis presents to the emergency room with a chief complaint of left shoulder pain with an onset of about 3 days. Patient denies any injury to the left shoulder. Patient denies any recent falls. Patient reports pain is limiting her mobility to the left upper extremity. Patient denies fevers, chills, shortness for breath, chest pain, nausea, vomiting, abdominal pain. Admission vital signs are temperature 98.4, heart rate 60 beats per minute, respiratory rate 17 breaths per minute, blood pressure 192/72, O2 sat 98% on room air. Admission labs show a CBC unremarkable, chemistries are unremarkable. Admission chest x-ray shows no acute cardiopulmonary pathology evident. On exam patient was found to have normal range of motion to left upper extremity however did complain of minimal tenderness. We will request x-ray. Patient will be admitted for hypotensive urgency. Today, patient is seen sitting up in bed with no signs of acute distress. Patient remains on room air and denies chest discomfort, chest pain, or dyspnea with exertion. Patient had a shoulder x ray and results show only osteoarthritis. A lidocaine patch was applied with good results. NO acute velez ges reported overnight. Patient has been advised to follow up with PCP in the next 1-2 days. Patient to utilize heat packs to alleviate shoulder pain. PT verbalized understanding. Vital sign stable, labs WNL. Med rec has been completed. New RX have been sent to pt's pharmacy. Education regarding her current diagnosis has been provided to the patient. All questions have been answered. PT to be discharged home. 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 PCP notified of patients admission, hospital course and discharge. Changed Medications: Losartan Potassium (Losartan Potassium) 50 Mg Tablet 1 TAB PO BID for 30 Days, #60 TAB 0 Refills (Changed from: DAILY; 30) Continued Medications: Ibuprofen (Ibuprofen 800 mg Tab) 800 Mg Tab 400 MG PO Q6H PRN for PAIN, TAB Rosuvastatin Calcium (Rosuvastatin Calcium) 10 Mg Tablet 20 MG PO HS, TAB Discontinued Medications: Amoxicillin (Amoxicillin) 500 Mg Capsule 1 CAP PO TID for 10 Days, #30 CAP 0 Refills PHYSICAL EXAM: GENERAL: alert, weak, awake oriented x 3 HEENT: EOMI, Sclera non icteric, moist mucosa NECK: Supple, no JVD, trachea midline LUNGS: Clear breath sounds bilaterally. No wheezes HEART: Regular rate and rhythm. Normal S1 and S2, without murmurs ABD: Abdomen soft, nontender. Bowel sounds present EXT: No clubbing cyanosis or edema NEURO: Alert and oriented to person, follows commands FOLLOW-UP: Follow-up with PCP in 2-3 days RECOMMENDATIONS: See Discharge Instructions This case was seen and discussed with my supervising physician. More than 30 minutes spent on discharge process, including evaluation of the patient, discussion with nursing staff, medication reconciliation and follow-up appointments ATTESTATION BY PHYSICIAN I attest that I reviewed and discussed the case with the Physician Composition Roofer as well as agree with the Physician Composition Roofer's findings, plans of care, and documentation above. Fernie Regalado MD, ECTOR N FNP Aug 08, 2025 11:39
--- NOTE | 2025-08-08 12:20 | NUR ---
DISCHARGE DC'D IV. NO COMPLICATIONS. PT AWARE TO FOLLOW UP WITH PCP WITHIN 1-2 DAYS. PHONE NUMBER PROVIDED. OFFICE WILL CALL PT WITH APPOINTMENT. IDANIA MARROQUIN, DAUGHTER, , MADE AWARE THAT PT IS BEING DISCHARGED. ACKNOWLEDGED INFORMATION. PT DENIES PAIN AT THIS TIME. PT WAITING FOR RIDE HOME.
== END 2025-08-08 14:20 | disposition home or self-care (01) ==
LOC: EDH 21:23 → EDHIP 08-07 01:20 → INTOOBSV 08-07 01:20 → UNDOADMOB 08-07 01:20 → 3BH 08-07 14:40 → EDHIP 08-07 14:40 → 3BH 08-08 11:05 → EDHIP 08-08 11:05
PROVIDERS: ADMIT Internal Medicine Pulmonary Disease; ATTEND Internal Medicine Pulmonary Disease
DX: I16.0 Hypertensive urgency (principal); I10 Essential (primary) hypertension; E78.00 Pure hypercholesterolemia, unspecified; M19.90 Unspecified osteoarthritis, unspecified site; M54.6 Pain in thoracic spine; M25.512 Pain in left shoulder; M81.0 Age-related osteoporosis without current pathological fracture; Z79.899 Other long term (current) drug therapy; Z98.890 Other specified postprocedural states
CPT/HCPCS: 99285; 96374; 96375; 82550; 83735 ×2; 84484; 80048 ×2; 83880; 85025 ×2; 85610; 85730; 85651; 82948 ×6; 86140; 36415 ×2; 71045; 73030; 93005; 96376; 84100; J2270; J0360 ×2; J2405; G0378 ×3